=== PATIENT | female | born 1985 | race Caucasian/White ===

== ENCOUNTER → 2019-06-28 12:54 | Outpatient (BNVA) | payer BC, SELFPAY | PROVIDERS: Family Provider Registered Nurse; PCP Registered Nurse; Referring Provider Dermatology; Visit Provider Otolaryngology | DX: H92.02 Otalgia, left ear (principal); H93.92 Unspecified disorder of left ear; H60.92 Unspecified otitis externa, left ear; H69.82 Other specified disorders of Eustachian tube, left ear; J34.2 Deviated nasal septum; J34.3 Hypertrophy of nasal turbinates; J32.9 Chronic sinusitis, unspecified | CPT/HCPCS: 99214 ==

== ENCOUNTER 2019-06-28 14:13 | Outpatient (CLI) | payer BC, SELFPAY ==
--- NOTE | 2019-06-28 14:18 | CT_ITS ---
WS: [id number] CT SINUSES TECHNIQUE: Noncontrast CT of the paranasal sinuses with coronal and sagittal reformatted images. CLINICAL INFORMATION: Ear problem COMPARISON: None. DLP: 462.[address] scans at [facility] use at least one of these dose optimization techniques: automat ed exposure control; mA and/or kV adjustment per patient size (includes targeted exams where dose is matched to clinical indication); or iterative reconstruction. FINDINGS: Minimal right to left nasal septal deviation measuring 1-2 mm. Mucosal thickening left maxillary sinu s measuring 7 mm. Mucosal thickening right maxillary sinus measuring 3 mm. Partial opacification of t he ostiomeatal units bilaterally with mucosal thickening. Hypoplastic frontal sinuses. Left frontal s inus is well aerated.. Small amount of fluid along the left frontoethmoidal recess. Trace mucosal thickening in the ethmoid air cells. Sphenoid sinuses are well aerated. Slight mucosal thickening along the sphenoid sinus ostia. Partially visualized mastoid air cells are well aerated. CT/CT sinus wo con* [id number] IMPRESSION: 1. Minimal nasal septal deviation measuring 1 to 2 mm 2. 7 mm mucosal thickening left maxillary sinus and 3 mm on the right. 3. Narrowing of the ostiomeatal units bilaterally with mild mucosal thickening . 4. Frontal sinuses and sphenoid sinuses are well aerated. Trace mucosal thicke talita in the ethmoid air cells. 5. Partially visualized mastoid air cells appear well aerated.
== END 2019-06-28 14:14 | disposition home or self-care (01) ==
LOC: CT 14:16
PROVIDERS: Family Provider Registered Nurse; PCP Registered Nurse; Visit Provider Otolaryngology
DX: H93.90 Unspecified disorder of ear, unspecified ear (principal)
CPT/HCPCS: 70486

== ENCOUNTER → 2019-07-03 15:20 | Outpatient (BNVA) | payer BC, SELFPAY | PROVIDERS: Family Provider Registered Nurse; PCP Registered Nurse; Visit Provider Otolaryngology | DX: H93.92 Unspecified disorder of left ear (principal); H60.92 Unspecified otitis externa, left ear; H92.02 Otalgia, left ear; H69.82 Other specified disorders of Eustachian tube, left ear; J34.2 Deviated nasal septum; J34.3 Hypertrophy of nasal turbinates; J32.9 Chronic sinusitis, unspecified | CPT/HCPCS: 96372; 99214; J3301 ==

== ENCOUNTER → 2019-07-25 16:06 | Outpatient (BNVA) | payer BC, SELFPAY | PROVIDERS: Family Provider Registered Nurse; PCP Registered Nurse; Visit Provider Otolaryngology | DX: H92.02 Otalgia, left ear (principal); H69.82 Other specified disorders of Eustachian tube, left ear; J32.9 Chronic sinusitis, unspecified; J34.2 Deviated nasal septum; J34.3 Hypertrophy of nasal turbinates | CPT/HCPCS: 96372; 99214; J3301 ==

== ENCOUNTER 2020-03-21 17:24 | Outpatient (CLI) | payer BC, SELFPAY ==
--- NOTE | 2020-03-21 17:29 | XR_ITS ---
WS: [id number] LEFT KNEE: 3 VIEW(S) TECHNIQUE: AP, oblique(s) and lateral. HISTORY: acute left knee pain COMPARISON: None available. No fracture or dislocation. No joint space narrowing or osteophytes. No joint effusion. No soft tissue abnormality. XR/XR knee LT 3V* [id number] IMPRESSION: Normal LEFT knee.
== END 2020-03-21 17:25 | disposition home or self-care (01) ==
LOC: RAD 17:26
PROVIDERS: Family Provider Registered Nurse; PCP Registered Nurse; Visit Provider Registered Nurse
DX: M25.562 Pain in left knee (principal)
CPT/HCPCS: 73562

== ENCOUNTER → 2020-12-19 11:22 | Outpatient (BNVA) | payer BC, SELFPAY | PROVIDERS: Family Provider Registered Nurse; PCP Registered Nurse; Visit Provider Registered Nurse | DX: Z11.52 Encounter for screening for COVID-19 (principal); J32.9 Chronic sinusitis, unspecified | CPT/HCPCS: 87635 ==

== ENCOUNTER → 2021-05-27 16:47 | Outpatient (BNVA) | payer BC, SELFPAY | PROVIDERS: Family Provider Registered Nurse; Visit Provider Family Medicine | DX: R05.3 Chronic cough (principal); F41.1 Generalized anxiety disorder; Z76.89 Persons encountering health services in other specified circumstances; R63.5 Abnormal weight gain; R53.83 Other fatigue | CPT/HCPCS: 84443 ==

== ENCOUNTER 2021-07-31 11:14 | Outpatient (CLI) | payer BC, SELFPAY ==
--- NOTE | 2021-07-31 11:21 | XR_ITS ---
WS: [id number] CHEST 2 VIEWS HISTORY: Shortness of breath COMPARISON: 07/28/2017 Lungs: Clear with no abnormality. No pleural effusion or pneumothorax. Cardiac size: Normal. Mediastinum/Aorta: Normal mediastinum. Bones: Normal. XR/XR chest 2V* [id number] IMPRESSION: Normal chest.
== END 2021-07-31 11:15 | disposition home or self-care (01) ==
PROVIDERS: PCP Family Medicine; Visit Provider Internal Medicine Critical Care Medicine
DX: R06.02 Shortness of breath (principal); J45.909 Unspecified asthma, uncomplicated
CPT/HCPCS: 71046; 82785; 85025; 86003

== ENCOUNTER 2021-09-02 13:27 | Outpatient (CLI) | payer BC, SELFPAY ==
--- NOTE | 2021-09-02 14:25 | PFTS_ITS ---
Date of Study:09/02/21 Date of Dictation: MECHANICS: Forced vital capacity (FVC) is normal. Forced expiratory volume in one second (FEV1) is reduced. FEV1/FVC is reduced. FLOW VOLUME LOOP: Reduced flow at all lung volumes with scooping. Concern for variable inspiratory flow obstruction. LUNG VOLUMES: Total lung capacity (TLC) is normal. Residual volume (RV) is increased. DIFFUSING CAPACITY FOR CARBON MONOXIDE: Normal. INTERPRETATION: The prebronchodilator spirometry is consistent with moderate airflow obstruction. The postbronchodilator spirometry is also consistent with moderate airflow obstruction. There is a significant postbronchodilator response. The flow volume loop could be suggestive of variable expiratory flow obstruction. Lung volumes are consistent with air trapping. Gas exchange (DLCO) is normal. MTDD
== END 2021-09-02 13:28 | disposition home or self-care (01) ==
PROVIDERS: PCP Family Medicine; Visit Provider Internal Medicine Critical Care Medicine
DX: J45.909 Unspecified asthma, uncomplicated (principal)
CPT/HCPCS: 94060; 94726; 94729

== ENCOUNTER → 2021-11-09 18:31 | Outpatient (BNVA) | payer BC, SELFPAY | PROVIDERS: PCP Family Medicine; Visit Provider Family Medicine | DX: R10.9 Unspecified abdominal pain (principal) | CPT/HCPCS: 81000 ==

== ENCOUNTER 2021-11-13 16:43 | Emergency (ER) | payer BC, SELFPAY ==
[2021-11-13 16:51] VITALS: BP 117/79; PULSE 65; RESP 16; TEMP 36.6; O2SAT 97
--- NOTE | 2021-11-13 18:05 | USR_ITS ---
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 Tonight is complaining of right pelvic pain radiating to the back today. ; Additional info: Rlq abd pain TECHNIQUE: Imaging protocol: Real-time transvaginal pelvic ultrasound with image documentation. Transvaginal imaging was used for better evaluation of the endometrium, adnexa, and/or cervix. COMPARISON: No relevant prior studies available. FINDINGS: Uterus: Uterus measures 6.8 x 3.5 x 4.5 cm. Intramural fibroid noted in the anterior body/fundus which measures 2.2 x 1.2 x 2.1 cm. A 2nd intramural fibroid along the posterior fundus measures 1.5 x 1.2 cm. Endometrial stripe measures 4 mm in thickness. Right ovary/adnexa: Right ovary measures 2.5 x 2.0 x 3.2 cm. 1.6 cm simple appearing right ovarian cyst noted. Normal ovarian blood flow. Left ovary/adnexa: Left ovary measures 3.3 x 2.3 x 2.9 cm. A couple simple appearing ovarian cysts noted measuring up to 1.5 cm. Normal ovarian blood flow. Intraperitoneal space: No free fluid. US/US transvaginal [id number] IMPRESSION: 1. No acute findings. 2. A couple small uterine fibroids noted measuring up to 2.2 cm in size. 3. Small simple appearing ovarian cysts bilaterally, likely dominant follicles. This measures up to 1.6 cm on the right and 1.5 cm on the left.
[2021-11-13 18:06] LABS: Add Urine Microscopic? NO; Basophils # 0.1 10^3/uL (0.0-0.1); Basophils % 0.8 %; Charge for UA Resulting for Rev; Eosinophils # 0.1 10^3/uL (0.0-0.8); Eosinophils % 1.2 %; Hemoglobin 13.9 g/dL (11.5-15.3); Lymphocytes # 2.4 10^3/uL (0.8-4.8); Lymphocytes % 36.9 %; Mean Corpuscular HGB Conc 33.9 g/dL (30.0-36.0); Mean Corpuscular Hemoglobin 29.4 pg (28.0-34.0); Mean Corpuscular Volume 86.7 fl (81-99); Mean Platelet Volume 10.9 fL (7.4-10.4); Monocytes # 0.6 10^3/uL (0.2-0.9); Monocytes % 8.6 %; Neutrophils # 3.48 10^3/uL (1.8-7.7); Neutrophils % 52.5 %; Nucleated Red Blood Cells % 0 %; Platelet Count 248 10^3/cmm (130-400); Red Blood Count 4.73 10^6/uL (4.1-5.3); Red Cell Distribution Width 12.5 % (12.1-15.1); White Blood Count 6.6 10^3/uL (4.0-10.0)
[2021-11-13 18:20] LABS: Blood Urine Neg (Negative); Glucose Urine UA Norm (Normal); Ketones Urine Negative (Negative); Nitrate Urine Negative (Negative); Protein Urine Neg (Negative); Specific Gravity, Urine 1.005 (1.005-1.030); Urine Appearance Clear (CLEAR); Urine Color Yellow (Yellow); pH Urine 7 (5-7)
[2021-11-13 18:21] LABS: Bilirubin Urine Neg (Negative); Leukocyte Esterase Urine Negative (Negative); Urobilinogen Urine Norm (Negative)
--- NOTE | 2021-11-13 18:44 | ED_ITS ---
HPI - General Adult General: Chief complaint: Abdominal Pain Stated complaint: abd and back pain Time Seen by Provider: 11/13/21 17:46 History of Present Illness: Patient is a 36-year-old female history of 2 prior presenting to the emergency room with complaints with 3 weeks of right lower quadrant right-sided flank pain now worsening. Patient tells me that she is currently on her period. Patient tells me that there is blood in her urine from her routine blood work test. Patient tells me that she has intermittent colicky pain in the right lower quadrant. With associated nausea. Patient denies any fever chills, decreased p.o. intake with diarrhea melena/hematoche dianne. Patient denies any urinary complaints or new vaginal discharge. Patient has 2 prior history of for many years ago. No other focal complaints at this time including chest pain, shortness breath, palpitation, cough, runny nose, fever or chills. Onset:3 weeks ago Duration:3 weeks Location:home Severity:moderate Associated symptoms: Reports nausea; Deny chest pain, dyspnea, rash, palpitations or vomiting Review of Systems Const: Denies: fever(s) or chills Eyes: Denies: change in vision ENMT: Denies: mouth pain Card: Denies: chest pain or palpitations Resp: Denies: dyspnea or non-productive cough GI: Reports: abdominal pain and nausea; Denies: vomiting or diarrhea : Denies: dysuria Musc: Denies: extremity pain Skin/Breast: Denies: rash or new lesions Neuro: Denies: weakness in extremities Psych: Reports: other (Normal mood) Paul/Lymph: Denies: easy bruising PFS ED PFSH: Medical History Asthma Chronic sinusitis Deviated septum Dysfunction of left eustachian tube Nasal turbinate hypertrophy Otalgia of left ear Otitis externa of left ear Surgical History History of nasal surgery Hx of section Family History Mother Hypertension Grandmother Hypertension Father Cancer Lung Social History Smoking and tobacco status: never smoked Alcohol intake: current Alcohol intake frequency: holidays/special occasions only History of recent travel: No Female Reproductive History: Date of last menstrual period: 11/08/21 Physical Exam Const: COMMON NORMALS: alert HENMT: COMMON NORMALS: atraumatic HEAD & SCALP: atraumatic MOUTH: moist mucous membranes not abnormal Eye: COMMON NORMALS: EOMs intact bilaterally and conjunctivae normal CONJUNCTIVA: Yes conjunctivae normal Neck/C-Spine: COMMON NORMALS: full ROM and supple Resp: COMMON NORMALS: normal respiratory effort and clear to auscultation bilaterally AUSCULTATION: clear to auscultation bilaterally Cardio: COMMON NORMALS: regular rate RATE: regular rate GI: COMMON NORMALS: Soft to palpation PALPATION: Yes Soft to palpation O THER: +mild RLQ focal TTP. NO guarding rebound, guarding, rigidity. No CVA tenderness to percussion. Neg Chapa/Neg McBurney's point tenderness, no suprabupic tenderness to palpation. Extremity: COMMON NORMALS: full ROM Neuro: SENSORIUM/ORIENTATION: Yes alert MOTOR EXAM: No Abnormal motor strength present and Other motor observations present (no focal motor deficits) Psych: COMMON NORMALS: speech normal SPEECH: Yes normal speech MOOD & AFFECT: Yes euthymic mood Course Vital Signs: Vital signs: Vital Signs Temperature 97.8 F 11/13/21 16:51 Pulse Rate 61 11/13/21 20:52 Respiratory Rate 16 11/13/21 20:52 Blood Pressure 105/66 11/13/21 20:52 Pulse Oximetry 99 11/13/21 20:52 MDM - General Adult Medical Decision Making 36-year-old female with a history of 2 prior presenting to emergency room with complaints of right-sided flank and right lower quadrant dental pain x3 weeks now worsening. On exam, patient mild tenderness palpation right lower quadrant. Patient is hemodynamically stable. No guarding or rebound tenderness. White count within normal. Rest of lab within normal limit. Transvaginal ultrasound did not show any focal findings of torsion or other pathology. Patient denies any complaints at this time. exam is deferred at this time. CT of pelvis negative for any acute finding. Rx tylenol PRN abd pain, maalox/pepcid PRN dyspepsia, and zofran PRN n ausea/vomiting Disposition: Discharge. Patient counseled regarding diagnostic impression, treatment plan. Patient given ED strict return precautions to return for continuation, worsening, or development of new symptoms. Instructed to f/u w/ PCP regarding symptoms today. Patient verbalized understanding. Lab Data : 11/13/21 17:58 11/13/21 17:58 Radiology Impressions Transvaginal US 11/13/21 18:05 IMPRESSION: 1. No acute findings. 2. A couple small uterine fibroids noted measuring up to 2.2 cm in size. 3. Small simple appearing ovarian cysts bilaterally, likely dominant follicles. This measures up to 1.6 cm on the right and 1.5 cm on the left. Abdomen/Pelvis CT 11/13/21 18:48 IMPRESSION: No acute findings. Laboratory Results WBC 6.6 10^3/uL (4.0-10.0) 11/13/21 17:58 RBC 4.73 10^6/uL (4.1-5.3) 11/13/21 17:58 Hgb 13.9 g/dL (11.5-15.3) 11/13/21 17:58 Hct 41.0 % (37.0-47.0) 11/13/21 17:58 MCV 86.7 fl (81-99) 11/13/21 17:58 MCH 29.4 pg (28.0-34.0) 11/13/21 17:58 MCHC 33.9 g/dL (30.0-36.0) 11/13/21 17:58 RDW 12.5 % (12.1-15.1) 11/13/21 17:58 Plt Count 248 10^3/cmm (130-400) 11/13/21 17:58 MPV 10.9 fL (7.4-10.4) H 11/13/21 17:58 Neut % (Auto) 52.5 % 11/13/21 17:58 Lymph % (Auto) 36.9 % 11/13/21 17:58 [place] % (Auto) 8.6 % 11/13/21 17:58 Eos % (Auto) 1.2 % 11/13/21 17:58 Baso % (Auto) 0.8 % 11/13/21 17:58 Neut # (Auto) 3.48 10^3/uL (1.8-7.7) 11/13/21 17:58 Lymph # (Auto) 2.4 10^3/uL (0.8-4.8) 11/13/21 17:58 [place] # (Auto) 0.6 10^3/uL (0.2-0.9) 11/13/21 17:58 Eos # (Auto) 0.1 10^3/uL (0.0-0.8) 11/13/21 17:58 Baso # (Auto) 0.1 10^3/uL (0.0-0.1) 11/13/21 17:58 Nucleated RBC % (auto) 0 % 11/13/21 17:58 Nucleated RBCs # 0.0 /100WBC 11/13/21 17:58 Sodium 138 mmol/L (136-145) 11/13/21 17:58 Potassium 4.0 mmol/L (3.5-5.1) 11/13/21 17:58 Chloride 101 mmol/L (98-107) 11/13/21 17:58 Carbon Dioxide 27 mmol/L (22-29) 11/13/21 17:58 Anion Gap 14.0 (5-19) 11/13/21 17:58 BUN 14 mg/dL (6-20) 11/13/21 17:58 Creatinine 0.8 mg/dL (0.5-0.9) 11/13/21 17:58 GFR Calculation 82.1 mL/min (90-130) L 11/13/21 17:58 Glucose 93 mg/dL (65-115) 11/13/21 17:58 Calculated Osmolality 286 mOsm/kg (285-295) 11/13/21 17:58 Calcium 9.3 mg/dL (8.5-10.5) 11/13/21 17:58 Total Bilirubin 0.2 mg/dL (0.15-1.2) 11/13/21 17:58 AST 17 U/L (0-32) 11/13/21 17:58 ALT 12 U/L (0-33) 11/13/21 17:58 Alkaline Phosphatase 54 IU/L (35-105) 11/13/21 17:58 Total Protein 7.5 g/dL (6.6-8.7) 11/13/21 17:58 Albumin 4.9 g/dL (3.5-5.2) 11/13/21 17:58 Globulin 2.6 g/dL (1.3-4.6) 11/13/21 17:58 Lipase 32 U/L (13-60) 11/13/21 17:58 HCG, Qual Negative (Negative) 11/13/21 17:58 Urine Color Yellow (Yellow) 11/13/21 17:58 Urine Appearance Clear (CLEAR) 11/13/21 17:58 Urine pH 7 (5-7) 11/13/21 17:58 Ur Specific [place] 1.005 (1.005-1.030) 11/13/21 17:58 Urine Protein Neg (Negative) 11/13/21 17:58 Urine Glucose (UA) Norm (Normal) 11/13/21 17:58 Urine Ketones Negative (Negative) 11/13/21 17:58 Urine Blood Neg (Negative) 11/13/21 17:58 Urine Nitrate Negative (Negative) 11/13/21 17:58 Urine Bilirubin Neg (Negative) 11/13/21 17:58 Urine Urobilinogen Norm mg/dL (Negative) 11/13/21 17:58 Ur Leukocyte Esterase Negative (Negative) 11/13/21 17:58 Imaging Data Other Imaging: Radiologist's impression: [id number] [address] [address] Scan Report Signed Patient: Lorie Webb Unit #: [id number] : 1985 Age/Sex: 36 / F ADM Date: 11/13/21 Loc: ER Room/Bed: Attending Dr: Ordering Provider/Ordering MD: Domingo Morales MD Date of Service: 11/13/21 Procedure(s): CT abdomen pelvis con [id number] Accession Number(s): [id number] Report Number: [id number] PROCEDURE INFORMATION: Exam: CT Abdomen And Pelvis Without Contrast Exam date and time: 11/13/2021 7:55 PM Age: 36 years old Clinical indication: Abdominal pain; Right; Prior surgery; Surgery type: Csection; Patient HX: C/O RT flank/rlq pain. ; Additional info: Abd pain TECHNIQUE: Imaging protocol: Computed tomography of the abdomen and pelvis without contrast. Radiation optimization: All CT scans at this facility use at least one of these dose optimization techniques: automated exposure control; mA and/or kV adjustment per patient size (includes targeted exams where dose is matched to clinical indication); or iterative reconstruction. COMPARISON: US transvaginal [id number] 11/13/2021 6:38 PM RADIATION DOSE METRICS: Total DLP (mGy-cm): 1461.48 FINDINGS: Liver: Normal. No mass. Gallbladder and bile ducts: Normal. No calcified stones. No ductal dilation. Pancreas: Normal. No ductal dilation. Spleen: Normal. No splenomegaly. Adrenal glands: Normal. No mass. Kidneys and ureters: Normal. No hydronephrosis. Stomach and bowel: Unremarkable. No obstruction. No mucosal thickening. Appendix: No evidence of appendicitis. Intraperitoneal space: Unremarkable. No free air. No significant fluid collection. Vasculature: Unremarkable. No abdominal aortic aneurysm. Lymph nodes: Unremarkable. No enlarged lymph nodes. Urinary bladder: Unremarkable as visualized. Reproductive: Small ovarian cysts noted, described in further detail on corresponding ultrasound. Bones/joints: No acute fracture. Soft tissues: Unremarkable. CT/CT abdomen pelvis con [id number] IMPRESSION: No acute findings. ? Dictated By: Michel Kim DO Signed By: Michel Kim DO Signed Date/Time: 11/13/212031 DD/ [address] [address] Ultrasound Report Signed Patient: Lorie Webb Unit #: [id number] : 1985 Age/Sex: 36 / F ADM Date: 11/13/21 Loc: ER Room/Bed: Attending Dr: Ordering Provider/Ordering MD: Domingo Morales MD Date of Service: 11/13/21 Procedure(s): US transvaginal [id number] Accession Number(s): [id number] Report Number: [id number] PROCEDURE INFORMATION: Exam: US Pelvis, Transvaginal Exam date and time: 11/13/2021 6:38 PM Age: 36 years old Clinical indication: Prior surgery; Surgery date: 6+ months; Surgery type: Csect x 2, last one 11 years ago; Patient HX: Chronic pelvic pain due to dx ovarian cysts, 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 Anupam is complaining of right pelvic pain radiating to the back today. ; Additional info: Rlq abd pain TECHNIQUE: Imaging protocol: Real-time transvaginal pelvic ultrasound with image documentation. Transvaginal imaging was used for better evaluation of the endometrium, adnexa, and/or cervix. COMPARISON: No relevant prior studies available. FINDINGS: Uterus: Uterus measures 6.8 x 3.5 x 4.5 cm. Intramural fibroid noted in the anterior body/fundus which measures 2.2 x 1.2 x 2.1 cm. A 2nd intramural fibroid along the posterior fundus measures 1.5 x 1.2 cm. Endometrial stripe measures 4 mm in thickness. Right ovary/adnexa: Right ovary measures 2.5 x 2.0 x 3.2 cm. 1.6 cm simple appearing right ovarian cyst noted. Normal ovarian blood flow. Left ovary/adnexa: Left ovary measures 3.3 x 2.3 x 2.9 cm. A couple simple appearing ovarian cysts noted measuring up to 1.5 cm. Normal ovarian blood flow. Intraperitoneal space: No free fluid. US/US transvaginal [id number] IMPRESSION: 1. No acute findings. 2. A couple small uterine fibroids noted measuring up to 2.2 cm in size. 3. Small simple appearing ovarian cysts bilaterally, likely dominant follicles. This measures up to 1.6 cm on the right and 1.5 cm on the left. ? Dictated By: Michel Kim DO Signed By: Michel Kim DO Signed Date/Time: 11/13/212036 DD/ 37 Discharge Plan Discharge Patient Disposition: Home Clinical Impression: Abdominal pain, Nausea Condition: Stable Prescriptions: New acetaminophen 500 mg tablet 500 mg PO Q6H PRN (Reason: pain) 5 Days Qty: 20 0RF Pepcid 20 mg tablet 20 mg PO BID PRN (Reason: abdominal pain) 10 Days Qty: 20 0RF ondansetron 4 mg tablet,disintegrating 4 mg PO TID PRN (Reason: nausea and vomiting) 4 Days Qty: 12 0RF Maalox Advanced 1,000-60 mg tablet,chewable 1 tab PO TID PRN (Reason: abdominal pain) 7 Days Qty: 21 0RF No Action fluticasone propionate [Flonase Allergy Relief] 50 mcg/actuation spray,suspension 1 spray intranasal Q12H 30 Days Qty: 16 3RF Rx Instructions: administer into each nostril albuterol sulfate 90 mcg/actuation HFA aerosol inhaler 2 puff inhalation 6XD PRN (Reason: shortness of breath or wheezing) 30 Days Qty: 8.5 3RF buspirone 5 mg tablet 5 mg PO TID PRN (Reason: anxiety) Qty: 30 2RF hydroxyzine HCl 10 mg tablet 10 mg PO TID PRN (Reason: anxiety) Qty: 30 2RF hydrocodone-acetaminophen 5-325 mg tablet 1 tab PO Q8H PRN (Reason: pain) 5 Days Qty: 14 0RF escitalopram oxalate [Lexapro] 20 mg tablet 20 mg PO DAILY Qty: 90 1RF Trelegy Ellipta 100-62.5-25 mcg blister with device 1 inh inhalation DAILY Qty: 60 3RF montelukast [Singulair] 10 mg tablet 10 mg PO DAILY Qty: 30 2RF Tezspire 210 mg/1.91 mL (110 mg/mL) syringe 210 mg SUBCUT .once monthly Qty: 1.91 3RF Discharge Orders: Discharge ED (Routine); Ordered 11/13/21 Ordered By: Domingo Morales Referrals: James Santamaria DO [Primary Care Provider] - Discharge Diet: Advance as tolerated Discharge Activity: Increase activity as tolerated Patient Instructions: Abdominal Pain (ED) Activity Restrictions/Additional Instructions: Please come back if you have any worsening abdominal pain, fever or chills, nausea or vomiting, diarrhea, blood in the stool, inability hold down liquid or solids, or any new concerning complaints. Coding Level of Care Code ED Flight Attendant/Inflight Supervisor for Micah Fwrita Exam Comprehensive
[2021-11-13 18:45] LABS: Alanine Aminotransferase 12 U/L (0-33); Albumin Level 4.9 g/dL (3.5-5.2); Alkaline Phosphatase 54 IU/L (35-105); Aspartate Amino Transferase 17 U/L (0-32); Blood Urea Nitrogen 14 mg/dL (6-20); Calcium 9.3 mg/dL (8.5-10.5); Carbon Dioxide 27 mmol/L (22-29); Chloride 101 mmol/L (98-107); Globulin 2.6 g/dL (1.3-4.6); Glomerular Filtration Rate 82.1 mL/min (90-130); Glucose 93 mg/dL (65-115); Lipase 32 U/L (13-60); Osmolality Calculated 286 mOsm/kg (285-295); Sodium 138 mmol/L (136-145); Total Bilirubin 0.2 mg/dL (0.15-1.2); Total Protein 7.5 g/dL (6.6-8.7)
--- NOTE | 2021-11-13 18:48 | CTR_ITS ---
PROCEDURE INFORMATION: Exam: CT Abdomen And Pelvis Without Contrast Exam date and time: 11/13/2021 7:55 PM Age: 36 years old Clinical indication: Abdominal pain; Right; Prior surgery; Surgery type: Csection; Patient HX: C/O RT flank/rlq pain. ; Additional info: Abd pain TECHNIQUE: Imaging protocol: Computed tomography of the abdomen and pelvis without contrast. Radiation optimization: All CT scans at this facility use at least one of these dose optimization techniques: automated exposure control; mA and/or kV adjustment per patient size (includes targeted exams where dose is matched to clinical indication); or iterative reconstruction. COMPARISON: US transvaginal [id number] 11/13/2021 6:38 PM RADIATION DOSE METRICS: Total DLP (mGy-cm): 1461.48 FINDINGS: Liver: Normal. No mass. Gallbladder and bile ducts: Normal. No calcified stones. No ductal dilation. Pancreas: Normal. No ductal dilation. Spleen: Normal. No splenomegaly. Adrenal glands: Normal. No mass. Kidneys and ureters: Normal. No hydronephrosis. Stomach and bowel: Unremarkable. No obstruction. No mucosal thickening. Appendix: No evidence of appendicitis. Intraperitoneal space: Unremarkable. No free air. No significant fluid collection. Vasculature: Unremarkable. No abdominal aortic aneurysm. Lymph nodes: Unremarkable. No enlarged lymph nodes. Urinary bladder: Unremarkable as visualized. Reproductive: Small ovarian cysts noted, described in further detail on corresponding ultrasound. Bones/joints: No acute fracture. Soft tissues: Unremarkable. CT/CT abdomen pelvis [facility] [id number] IMPRESSION: No acute findings.
[2021-11-13 18:51] LABS: HCG, Serum Qual Negative (Negative)
[2021-11-13] MEDS: acetaminophen 500 mg Tablet PO (20:07)
[2021-11-13 20:52] VITALS: BP 105/66; PULSE 61; RESP 16; O2SAT 99
== END 2021-11-13 20:57 | disposition home or self-care (01) ==
PROVIDERS: Nurse Practitioner Family; Emergency Provider Emergency Medicine; PCP Family Medicine
DX: R10.9 Unspecified abdominal pain (principal); R11.0 Nausea
CPT/HCPCS: 74176; 76830; 80053; 81003; 83690; 84703; 85025; 99283

== ENCOUNTER 2021-11-20 11:38 | Outpatient (CLI) | payer BC, SELFPAY ==
--- NOTE | 2021-11-20 12:23 | XR_ITS ---
WS: [id number] XR elbow RT min 3V* [id number] REASON FOR EXAM: M25.521 - Pain in right elbow FINDINGS: No fracture identified. Spaces of the elbow joint are intact and well preserved. No soft tissue abnormality. No joint effusion identified. XR/XR elbow RT min 3V* [id number] IMPRESSION: No acute abnormality.
--- NOTE | 2021-11-20 16:30 | US_ITS ---
WS: [id number] RIGHT UPPER QUADRANT ULTRASOUND HISTORY: RUQ pain, worsening. COMPARISON: None available. Liver: 12.8 cm in length. Normal size liver. No bile duct dilatation or mass. Portal Vein: Normal hepatopetal flow with monophasic waveform. Gallbladder: Normally distended gallbladder with no stones or wall thickening. CBD: 0.5 cm Pancreas: Normal size and echogenicity. Right kidney: 9.5 cm in length. Normal size and echogenicity. No hydronephrosis or mass. Aorta and IVC: Unremarkable abdominal aorta and IVC. No ascites. US/US abdomen limited [id number] IMPRESSION: Normal RIGHT upper quadrant ultrasound.
== END 2021-11-20 11:39 | disposition home or self-care (01) ==
PROVIDERS: PCP Family Medicine; Referring Provider Registered Nurse; Visit Provider Family Medicine
DX: R10.9 Unspecified abdominal pain (principal); R11.0 Nausea; M25.421 Effusion, right elbow; M25.521 Pain in right elbow
CPT/HCPCS: 73080; 76705

== ENCOUNTER → 2021-11-27 14:14 | Day surgery (SDC) | payer BC, SELFPAY ==
[2021-11-27] MEDS: NON-FORMULARY MEDICATION 1 EACH SUBCUT (14:27)
[2021-11-27 14:36] VITALS: BP 126/68; PULSE 66; RESP 18; TEMP 36.3; O2SAT 98
== END ==
PROVIDERS: PCP Family Medicine; Visit Provider Internal Medicine Critical Care Medicine
DX: J45.50 Severe persistent asthma, uncomplicated (principal)
CPT/HCPCS: 96372; J2704

== ENCOUNTER 2021-12-17 07:52 | Outpatient (CLI) | payer BC, SELFPAY ==
--- NOTE | 2021-12-17 08:00 | NM_ITS ---
WS: [id number] NUCLEAR MEDICINE HIDA SCAN WITH GALLBLADDER EJECTION FRACTION HISTORY: abdominal pain COMPARISON: Gallbladder ultrasound 11/20/2021 and prior HIDA scan 07/01/2017. TECHNIQUE: The patient was intravenously injected with 7.5 mCi of TC99m Mebrofenin. Immediate imaging over the right upper quadrant was followed by 5 minute image and additional images for a total of 60 minutes. Normal uptake of radiotracer throughout the liver. Activity identified in the gallbladder at 15 minutes and only mildly distended at 60 minutes. Activity in the proximal small bowel was seen after fatty meal. Good washout of the radiotracer from the liver at 60 minutes. The patient then drank 8 ounces of Ensure Plus. Ejection fraction at 60 minutes was 95%. Normal GB ej ection fraction is 35-75%. Post fatty meal symptoms: None. NM/NM hepatobiliary w phar* [id number] IMPRESSION: 1. No cystic or common bile duct obstruction. 2. Small caliber gallbladder did not distend very well at 60 minutes. There wa s a normal ejection fraction. There may be a component of mild chronic cholecys titis. The recent gallbladder ultrasound was normal and showed a normally diste nded gallbladder.
== END 2021-12-17 07:53 | disposition home or self-care (01) ==
LOC: RAD 07:54
PROVIDERS: PCP Family Medicine; Visit Provider Surgery
DX: R10.9 Unspecified abdominal pain (principal)
CPT/HCPCS: 78227; A9537

== ENCOUNTER 2021-12-18 08:54 | Day surgery (SDC) | payer BC, SELFPAY ==
[2021-12-16 09:05] VITALS: BMI 29.2
[2021-12-18 09:14] VITALS: BP 118/66; PULSE 71; RESP 18; TEMP 36.1; O2SAT 96
[2021-12-18 09:21] LABS: OR HCG Qualitative Urine Negative (Negative)
[2021-12-18] MEDS: sodium chloride 0.9% 1,000 ML 30 ML IV (09:22)
--- NOTE | 2021-12-18 09:53 | W.PM.OPSUD ---
Surgery/Procedure H&P Update DATE OF PROCEDURE: December 18, 2021 DATE H&P PERFORMED: 12/01/21 CHANGES TO PREVIOUS DOCUMENTATION: none PLANNED PROCEDURE: Operation Date: 12/18/21 10:30 Proposed Procedures p EGD(Not Applicable) - Salas Villarreal DO
--- NOTE | 2021-12-18 10:17 | ANES.PREANE2 ---
Pre-Anesthetic Assessment Height/Weight: Height 1.57 m Weight 72.575 kg Temp Pulse Resp BP Pulse Ox O2 Del Method 97.0 F L 71 18 118/66 96 12/18/21 09:14 12/18/21 09:14 12/18/21 09:14 12/18/21 09:14 12/18/21 09:14 12/18/21 09:14 Preop Diagnosis: Dysphagia Operation Date: 12/18/21 10:30 Proposed Procedures p EGD(Not Applicable) - Salas Villarreal DO Familial anesthetic complications: none Was Beta Leeanna taken within 24 hours: N/A Was Clonidine taken within 24 hours: N/A Last intake: Intake Last Liquid Date 12/17/21 Last Liquid Time 22:00 Last Solid Date 12/17/21 Last Solid Time 22:00 Social No alcohol and No tobacco Airway Submandibular: within normal limits Cervical ROM: within normal limits Mallampati: Class II Dentition: full Pulmonary None reported CV/HEM None reported None reported Hepatic None reported Medications/Allergies Home Medications Medication Instructions Recorded Confirmed Last Taken Type escitalopram oxalate 20 mg tablet 20 mg PO DAILY #90 tabs 06/24/21 12/19/21 12/17/21 Rx (Lexapro) buspirone 5 mg tablet 5 mg PO TID PRN anxiety #30 tabs 07/08/21 12/19/21 11/27/21 Rx hydroxyzine HCl 10 mg tablet 10 mg PO TID PRN anxiety #30 tabs 07/08/21 12/19/21 11/27/21 Rx albuterol sulfate 90 mcg/actuation 2 puff inhalation 6XD PRN 07/31/21 12/19/21 12/17/21 Rx aerosol inhaler shortness of breath or wheezing 30 days #8.5 grams fluticasone propionate 50 1 spray intranasal Q12H 30 days 07/31/21 12/19/21 11/27/21 Rx mcg/actuation nasal #16 grams spray,suspension (Flonase Allergy Relief) montelukast 10 mg tablet 10 mg PO DAILY #30 tabs 10/06/21 12/19/21 12/17/21 Rx (Singulair) tezepelumab-ekko 210 mg/1.91 mL 210 mg (1.91 mL) SUBCUT .once 06/12/19/21 11/27/21 Rx (110 mg/mL) subcutaneous syringe monthly #1.91 mL (Tezspire) meclizine 12.5 mg tablet 12.5 mg PO TID PRN dizziness #15 12/02/21 12/19/21 12/13/21 Rx tabs Allergies Allergy/AdvReac Type Severity Reaction Status Date / Time lactose Allergy Unknown Verified 12/19/21 11:44 Current Medications Generic Name Dose Route Start Last Admin Trade Name Freq PRN Reason Stop Dose Admin Sodium Chloride 1,000 mls @ 30 mls/hr 12/18/21 09:00 12/18/21 09:22 Sodium Chloride 0.9% IV 12/19/21 08:59 30 mls/hr .Q24H ZION Administration PFSH Anesthesia Medical History Asthma Chronic sinusitis Deviated septum Dysfunction of left eustachian tube Nasal turbinate hypertrophy Otalgia of left ear Otitis externa of left ear Surgical History History of nasal surgery Hx of section Family History Mother Hypertension Grandmother Hypertension Father Cancer Lung Social History Smoking and tobacco status: never smoked Alcohol intake: current Alcohol intake frequency: holidays/special occasions only History of recent travel: No Female Reproductive History Date of last menstrual period: 11/08/21 Data Anesthesia Cardiac Studies: No Data to Display
[2021-12-18 10:33] VITALS: BP 105/74; PULSE 72; RESP 16; TEMP 36.2; O2SAT 95
[2021-12-18 10:42] VITALS: BP 112/78; PULSE 77; RESP 18; O2SAT 96
--- NOTE | 2021-12-18 12:48 | ANE.PACU2 ---
Inpatient post-anesthesia follow up: Airway intact: Yes Vital signs: Temperature 97.2 F Pulse Rate 77 Respiratory Rate 18 Blood Pressure 112/78 Pulse Oximetry 96 Oxygen Delivery Me thod Room Air Oxygen Flow Rate 6 Fraction of Inspir ed Oxygen Hydration adequate: Yes Nausea and vomiting: No Pain level: 1 Mental status: Baseline
== END 2021-12-18 10:52 | disposition home or self-care (01) ==
PROVIDERS: Anesthesiology; PCP Family Medicine; Visit Provider Surgery
PROC: 0DJ08ZZ Inspection of Upper Intestinal Tract, Via Natural or Artificial Opening Endoscopic (ICD-10-PCS; CPT 43235; principal; 2021-12-18 10:30)
DX: R10.13 Epigastric pain (principal)
CPT/HCPCS: 43235; 81025; 84703; J7030

== ENCOUNTER → 2021-12-25 11:04 | Day surgery (SDC) | payer BC, SELFPAY ==
[2021-12-25 11:26] VITALS: BP 119/63; PULSE 77; RESP 18; TEMP 36.2; O2SAT 97
== END ==
PROVIDERS: PCP Family Medicine; Visit Provider Internal Medicine Critical Care Medicine
DX: J45.50 Severe persistent asthma, uncomplicated (principal)
CPT/HCPCS: 96372

== ENCOUNTER 2022-01-08 07:01 | Day surgery (SDC) | payer BC, SELFPAY ==
[2022-01-08] VITALS (14 sets, daily range): BP systolic 97–131; BP diastolic 60–85; PULSE 52–77; RESP 16–20; TEMP 36.2–36.6; O2SAT 97–100
[2022-01-08 07:20] LABS: OR HCG Qualitative Urine Negative (Negative)
--- NOTE | 2022-01-08 07:21 | P.ANESASSM_ITS ---
Pre-Anesthetic Assessment Height/Weight: Height 1.55 m Weight 72.575 kg Temp Pulse Resp BP Pulse Ox O2 Del Method 97.1 F L 62 17 107/74 97 01/08/22 07:10 01/08/22 07:10 01/08/22 07:10 01/08/22 07:10 01/08/22 07:10 01/08/22 07:10 Preop Diagnosis: Dysphagia Operation Date: 01/08/22 07:50 Proposed Procedures p Laparoscopic Cholecystectomy 96255,K81.1(Not Applicable) - Salas Villarreal DO Familial anesthetic complications: None Was Beta Leeanna taken within 24 hours: N/A Was Clonidine taken within 24 hours: N/A Last intake: Intake Last Liquid Date 01/07/22 Last Liquid Time 21:30 Last Solid Date 01/07/22 Last Solid Time 21:30 Social No alcohol and No tobacco Exam alert, oriented x 3, clear to auscultation bilaterally and regular rate & rhythm Airway Mallampati: Class II Dentition: full Pulmonary Asthma CV/HEM None reported None reported Hepatic None reported GI None reported Metabolic None reported Musc/skel None reported Neuropsych None reported Anesthetic Plan ASA status: 2 Anesthesia: General Risk of > 500 ml blood loss (7ml/kg in children): No Medications/Allergies Home Medications Medication Instructions Recorded Confirmed Last Taken Type buspirone 5 mg tablet 5 mg PO TID PRN anxiety #30 tabs 07/08/21 01/07/22 12/25/21 Rx hydroxyzine HCl 10 mg tablet 10 mg PO TID PRN anxiety #30 tabs 07/08/21 01/07/22 12/25/21 Rx albuterol sulfate 90 mcg/actuation 2 puff inhalation 6XD PRN 07/31/21 01/07/22 12/25/21 Rx aerosol inhaler shortness of breath or wheezing 30 days #8.5 grams fluticasone propionate 50 1 spray intranasal Q12H 30 days 07/31/21 01/08/22 12/25/21 Rx mcg/actuation nasal #16 grams spray,suspension (Flonase Allergy Relief) montelukast 10 mg tablet 10 mg PO DAILY #30 tabs 10/06/21 01/08/22 01/06/22 Rx (Singulair) tezepelumab-ekko 210 mg/1.91 mL 210 mg (1.91 mL) SUBCUT .once 11/05/21 01/08/22 12/25/21 Rx (110 mg/mL) subcutaneous syringe monthly #1.91 mL (Tezspire) escitalopram oxalate 20 mg tablet 20 mg PO DAILY #90 tabs 12/29/21 01/08/22 01/06/22 Rx (Lexapro) Allergies Allergy/AdvReac Type Severity Reaction Status Date / Time lactose Allergy Unknown Verified 01/08/22 07:11 [facility] Anesthesia Medical History Asthma Chronic sinusitis Deviated septum Dysfunction of left eustachian tube Nasal turbinate hypertrophy Otalgia of left ear Otitis externa of left ear Surgical History History of nasal surgery Hx of section Family History Mother Hypertension Grandmother Hypertension Father Cancer Lung Social History Smoking and tobacco status: never smoked Alcohol intake: current Alcohol intake frequency: holidays/special occasions only History of recent travel: No Female Reproductive History Date of last menstrual period: 11/08/21 Data Anesthesia Cardiac Studies: No Data to Display
[2022-01-08] MEDS: sodium chloride 0.9% 1,000 ML 30 ML IV (07:26)
--- NOTE | 2022-01-08 08:26 | W.PM.OPSUD ---
Surgery/Procedure H&P Update DATE OF PROCEDURE: January 08, 2022 DATE H&P PERFORMED: 12/19/21 CHANGES TO PREVIOUS DOCUMENTATION: none PREOP DIAGNOSIS: Dysphagia PLANNED PROCEDURE: Operation Date: 01/08/22 07:50 Proposed Procedures p Laparoscopic Cholecystectomy 52089,K81.1(Not Applicable) - Salas Villarreal DO
[2022-01-08] MEDS: ceFAZolin 2,000 MG in sodium chloride 0.9% (plus) 50 ML 100 MG IV (08:36)
--- NOTE | 2022-01-08 09:14 | P.OP_ITS ---
Operative Report Date of procedure: January 08, 2022 Pre-op diagnosis: Preop Diagnosis Cholecystitis Post-op diagnosis: same Procedure done: Laparoscopic cholecystectomy Specimens removed/disposition: Gallbladder Surgeon: Dr. Salas Villarreal DO Estimated blood loss (mL): 10 Complications: None apparent Brief History: This is a very pleasant indicated cholecystitis. Laparoscopic cholecystectomy was indicated. The risks and benefits were explained and documented. Procedure: Patient was wheeled into the operative room and placed on the OR table in a supine position. Abdomen was inspected prepped and draped in usual sterile fashion. Time-out was performed and all present were in agreement. A 15 blade scalp was used to make a stab incision in the left upper quadrant and intra- abdominal insufflation was achieved using a Veress needle. After localizing the tissue incisions were made and a 5 millimeter trocar was placed into the umbilicus as well as 2 in the right upper quadrant. A 12 millimeter trocar was placed in the epigastrium. Gallbladder was grasped and elevated. The triangle of Calot was carefully dissected using blunt dissection and electrocautery until the triangle of Calot clearly identified. The cystic duct was clipped proximally and double clipped distally. The duct was then ligated proximally. The cystic artery was doubly clipped and ligated. The gallbladder was then removed from the liver bed using electrocautery. The gallbladder was removed from the abdomen using an Endo-Catch bag through the epigastric incision. The liver bed was inspected and no bleeding was seen. The abdomen was irrigated and suctioned. All ports removed. Skin was washed and dried. Incisions were closed with 3-0 and 4-O Vicryl in a subcuticular interrupted fashion. Skin glue was applied. Patient tolerated the procedure well.
[2022-01-08] MEDS: fentaNYL 50 mcg/mL INJ 2mL IVP ×2 (09:47→09:57)
[2022-01-08] MEDS: HYDROmorphone 1 mg/mL INJ 1 mL 0.5 MG IVP (10:10)
[2022-01-08] MEDS: ondansetron 2 mg/ML SDV 2 mL 4 MG IVP (11:09)
--- NOTE | 2022-01-08 11:14 | SUR.PHASEII ---
Patient became nauseated, zofran was administered. Nasal cannula removed, patient on room air, tolerating well.
[2022-01-08] MEDS: diphenhydrAMINE 50 mg/mL SDV 1mL 12.5 MG IVP (11:39)
[2022-01-08] MEDS: metoclopramide 5 mg/mL SDV 2 mL IVP (12:02)
[2022-01-08] MEDS: HYDROcodone-acetaminophen 7.5-325 mg Tablet 1 TAB PO (12:26)
--- NOTE | 2022-01-08 12:37 | ANE.PACU2 ---
Inpatient post-anesthesia follow up: Airway intact: Yes Vital signs: Temperature 97.4 F Pulse Rate 53 Respiratory Rate 17 Blood Pressure 97/60 Pulse Oximetry 97 Oxygen Delivery Me thod Nasal Cannula Oxygen Flow Rate 2 Fraction of Inspir ed Oxygen Hydration adequate: Yes Nausea and vomiting: No Pain level: 1 Mental status: Baseline
== END 2022-01-08 12:33 | disposition home or self-care (01) ==
PROVIDERS: Anesthesiology; PCP Family Medicine; Visit Provider Surgery
PROC: 0FT44ZZ Resection of Gallbladder, Percutaneous Endoscopic Approach (ICD-10-PCS; CPT 47562; principal; 2022-01-08 08:30)
DX: K81.1 Chronic cholecystitis (principal); J45.909 Unspecified asthma, uncomplicated
CPT/HCPCS: 47562; 81025; 84703; 88304; J1100; J1170; J1200; J2250; J2405; J2704; J2710; J2765; J3010; J3490; J7030

== ENCOUNTER 2022-01-09 12:13 | Emergency (ER) | payer BC, SELFPAY ==
[2022-01-09] VITALS (10 sets, daily range): BP systolic 93–136; BP diastolic 54–80; PULSE 49–61; RESP 14–19; TEMP 36.9; O2SAT 95–99; BMI 30.2
--- NOTE | 2022-01-09 12:21 | XRR_ITS ---
PROCEDURE INFORMATION: Exam: XR Chest Exam date and time: 01/09/2022 12:36 PM Age: 36 years old Clinical indication: Pain and device placement; Other: S/P lap kacy; Angina pectoris; Prior surgery; Additional info: Cp S/P lap kacy TECHNIQUE: Imaging protocol: Radiologic exam of the chest. Views: 1 view. COMPARISON: CR XR chest 2V* [id number] 07/31/2021 11:20 AM FINDINGS: Lungs: Bilateral hilar to lower lobe atelectasis versus minimal infiltrate. Pleural spaces: Unremarkable. No pleural effusion. No pneumothorax. Heart/Mediastinum: Unremarkable. No cardiomegaly. Bones/joints: Unremarkable. XR/XR chest 1V portable [id number] IMPRESSION: Bilateral hilar to lower lobe atelectasis versus minimal infiltrate.
--- NOTE | 2022-01-09 12:21 | ECG_ITS ---
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 Measurements Intervals Mouthcard Rate: 51 P: OH: QRS: 15 QRSD: 85 T: -29 QT: 439 QTc: 407 Interpretive Statements SINUS BRADYCARDIA NONSPECIFIC ST & T-WAVE ABNORMALITY No previous ECG available for comparison Electronically Signed On 01-09-2022 17:44:47 CDT by Tremaine Koroma M.D. [id number]
--- NOTE | 2022-01-09 12:25 | ED_ITS ---
HPI - Abdominal Pain General: Chief Complaint: Chest Pain Stated Complaint: RESPIRATORY DISTRESS/ ANAPHYLAXIS REACTION Time Seen by Provider: 01/09/22 12:21 Source: patient and family Mode of arrival: ambulatory Limitations: no limitations History of Present Illness: This patient presented to the emergency room via private vehicle. She was riding in the car with her spouse and developed upper abdominal discomfort predominantly in the right and central portions of her upper abdomen. She states it felt like it hurt worse when she tried to take a deep breath. She was nauseated but no vomiting. She denies any other symptoms at this time to include difficulty swallowing, skin rash etc. She has had 24- hour status post a laparoscopic cholecystectomy without any complications and was discharged after noon yesterday on the day of her surgery. She denies any fevers. She is otherwise in good health. Non-smoker. She has been taking some hydrocodone for her postoperative pain as directed. She has no history of cardiopulmonary disease otherwise. No history of thromboembolic disease. She has a tubal ligation but she takes no prescribed hormones. MD elicited complaint: abdominal pain Associated Symptoms: Reports nausea; Denies chills, diarrhea, dysuria, fever(s), syncope and vomiting Related Data: Date of Last Menstrual Period: 11/08/21 Review of Systems Const: Denies: fever(s), chills or body aches Eyes: Denies: change in vision ENMT: Denies: throat pain, odynophagia or nasal congestion Card: Denies: chest pain, palpitations, irregular heart rhythm, syncope or pre-syncope Resp: Denies: dyspnea, productive cough or non-productive cough GI: Reports: abdominal pain and nausea; Denies: vomiting or diarrhea : Denies: flank pain, difficulty voiding, dysuria or urinary frequency Musc: Denies: neck pain, back pain, extremity pain or extremity swelling Skin/Breast: Denies: rash Neuro: Denies: headache(s) Psych: Denies: anxiety or depression Paul/Lymph: Denies: easy bruising or easy bleeding [facility] ED PFSH: Medical History Asthma Chronic sinusitis Deviated septum Dysfunction of left eustachian tube Nasal turbinate hypertrophy Otalgia of left ear Otitis externa of left ear Surgical History History of nasal surgery Hx of section Family History Mother Hypertension Grandmother Hypertension Father Cancer Lung Social History Smoking and tobacco status: never smoked Alcohol intake: current Alcohol intake frequency: holidays/special occasions only History of recent travel: No Female Reproductive History: Date of last menstrual period: 11/08/21 Physical Exam Narrative: EXAM NARRATIVE: Healthy appearing. Slightly anxious. Able to answer questions in a full goal-directed sentences. Const: COMMON NORMALS: no acute distress, average body habitus, patient oriented x3 and healthy appearing GENERAL APPEARANCE: cooperative and anxious HENMT: COMMON NORMALS: normocephalic, moist oral mucous membranes and oropharynx normal HEAD & SCALP: normocephalic FACE & SINUS: normal facial exam Eye: COMMON NORMALS: Equal, round and reactive pupils present, EOMs intact bilaterally, conjunctivae normal and no scleral icterus CONJUNCTIVA: Yes conjunctivae normal PUPIL: Yes Equal, round and reactive pupils present Neck/C-Spine: COMMON NORMALS: full ROM, no meningeal signs and Thyroid normal THYROID: Thyroid normal Lymph: LYMPHATIC: no lymphadenopathy noted Chest: COMMONS NORMALS: normal inspection of the chest and normal palpation of entire chest wall Resp: COMMON NORMALS: normal respiratory effort, No retractions, No use of accessory muscles and clear to auscultation bilaterally EFFORT & INSPECTION: Yes able to speak in complete sentences AUSCULTATION: clear to auscultation bilaterally Cardio: COMMON NORMALS: regular rate, regular rhythm, No murmurs present (Cardio) and Peripheral pulses 2+ throughout RATE: regular rate RHYTHM: regular rhythm PERIPHERAL PULSES: Peripheral pulses 2+ throughout GI: INSPECTION: Yes normal to inspection and No GI erythema present OTHER: Abdominal examination reveals some mild voluntary guarding to palpation in the right upper quadrant as well as the epigastric region. No rebound. Typical laparoscopic surgical incisions intact. No drainage no erythema. : COMMON NORMALS: Yes no CVA tenderness BLADDER/KIDNEY EXAM: Yes no CVA tenderness Back/Pelvis: COMMON NORMALS: no CVA tenderness, thoracic and lumbar spine normal to inspection and thoraco-lumbar ROM normal Extremity: COMMON NORMALS: normal to inspection, full ROM, capillary refill normal, no calf tenderness and no pedal edema Neuro: COMMON NORMALS: patient oriented x3, moves all extremities, no focal motor deficits and no sensory deficits noted MENINGEAL SIGNS: Yes no meningeal signs CRANIAL NERVES: Yes CN normal except as noted Psych: COMMON NORMALS: mental status grossly normal Skin: COMMON NORMALS: no rashes or lesions noted, turgor normal and no jaundice GENERAL SKIN EXAM: no rashes or lesions noted and turgor normal Course Reevaluation(s): Reevaluation #1: Symptoms significantly improved appears more comfortable clinically. My review of chest x-ray reveals no evidence of significant findings. PERC neg (very low risk given short duration of surgery). Time: 13:03 Reevaluation #2: Still with some nausea and discomfort which appears to be subcostal. Time: 14:59 Reevaluation #3: Patient states she is feeling better at this point and would like to be discharged home. Vital signs were normal and no other concerning findings on reevaluation at this time. Time: 18:23 Consultations: Consultation #1: Discussed with Dr. Villarreal who agrees with proceeding with CT scan Time: 17:20 Vital Signs: Vital signs: Vital Signs Temperature 98.5 F 01/09/22 12:21 Pulse Rate 58 L 01/09/22 18:02 Respiratory Rate 14 01/09/22 16:00 Blood Pressure 96/59 01/09/22 18:02 Pulse Oximetry 96 01/09/22 18:02 Oxygen Delivery Me thod 01/09/22 15:30 MDM - Abdominal Pain Medical Decision Making Patient who is recently status post a laparoscopic cholecystectomy presented to the emergency department with epigastric and subcostal discomfort and pain. She states that the symptoms began while she was riding in a car today. She had no associated findings to suggest other worrisome condition such as tachycardia or hypoxia etc. Her evaluation in the emergency department was unrevealing for any worrisome findings. She had normal biochemical evaluation, normal imaging to include chest x-ray and a CT scan. Her symptoms improved with time and symptomatic treatment. Nothing to suggest an ongoing emergency medical condition. There was some question of whether her symptoms are related to her use of the hydrocodone and may have caused gastric or GI upset. Findings were reviewed with the her surgeon as well. Stable at this time for discharge with close follow-up. She acknowledged our discussion and was appreciative of care. Medical Records I reviewed the patient's medical records. Lab Data : 01/09/22 12:33 01/09/22 12:59 Labs/Radiology: Radiology Impressions Chest X-Ray 01/09/22 12:21 IMPRESSION: Bilateral hilar to lower lobe atelectasis versus minimal infiltrate. Abdomen/Pelvis CT 01/09/22 16:20 IMPRESSION: Expected sequela of recent cholecystectomy. Otherwise, no acute findings. Laboratory Results WBC 14.4 10^3/uL (4.0-10.0) H 01/09/22 12:33 RBC 4.85 10^6/uL (4.1-5.3) 01/09/22 12:33 Hgb 14.2 g/dL (11.5-15.3) 01/09/22 12:33 Hct 42.9 % (37.0-47.0) 01/09/22 12:33 MCV 88.5 fl (81-99) 01/09/22 12:33 MCH 29.3 pg (28.0-34.0) 01/09/22 12:33 MCHC 33.1 g/dL (30.0-36.0) 01/09/22 12:33 RDW 12.7 % (12.1-15.1) 01/09/22 12:33 Plt Count 270 10^3/cmm (130-400) 01/09/22 12:33 MPV 11.2 fL (7.4-10.4) H 01/09/22 12:33 Neut % (Auto) 74.3 % 01/09/22 12:33 Lymph % (Auto) 20.3 % 01/09/22 12:33 Collin % (Auto) 4.7 % 01/09/22 12:33 Eos % (Auto) 0.1 % 01/09/22 12:33 Baso % (Auto) 0.3 % 01/09/22 12:33 Neut # (Auto) 10.67 10^3/uL (1.8-7.7) H 01/09/22 12:33 Lymph # (Auto) 2.9 10^3/uL (0.8-4.8) 01/09/22 12:33 Collin # (Auto) 0.7 10^3/uL (0.2-0.9) 01/09/22 12:33 Eos # (Auto) 0.0 10^3/uL (0.0-0.8) 01/09/22 12:33 Baso # (Auto) 0.0 10^3/uL (0.0-0.1) 01/09/22 12:33 Nucleated RBC % (auto) 0 % 01/09/22 12:33 Nucleated RBCs # 0.0 /100WBC 01/09/22 12:33 Sodium 139 mmol/L (136-145) 01/09/22 12:59 Potassium 3.4 mmol/L (3.5-5.1) L 01/09/22 12:59 Chloride 105 mmol/L (98-107) 01/09/22 12:59 Carbon Dioxide 25 mmol/L (22-29) 01/09/22 12:59 Anion Gap 12.4 (5-19) 01/09/22 12:59 BUN 9 mg/dL (6-20) 01/09/22 12:59 Creatinine 0.7 mg/dL (0.5-0.9) 01/09/22 12:59 GFR Calculation 95.8 mL/min (90-130) 01/09/22 12:59 Glucose 98 mg/dL (65-115) 01/09/22 12:59 Calculated Osmolality 287 mOsm/kg (285-295) 01/09/22 12:59 Calcium 8.4 mg/dL (8.5-10.5) L 01/09/22 12:59 Total Bilirubin 0.3 mg/dL (0.15-1.2) 01/09/22 12:59 AST 20 U/L (0-32) 01/09/22 12:59 ALT 24 U/L (0-33) 01/09/22 12:59 Alkaline Phosphatase 54 U/L (35-105) 01/09/22 12:59 Total Protein 5.9 g/dL (6.6-8.7) L 01/09/22 12:59 Albumin 3.7 g/dL (3.5-5.2) 01/09/22 12:59 Globulin 2.2 g/dL (1.3-4.6) 01/09/22 12:59 HCG, Qual Negative (Negative) 01/09/22 17:06 EKG Data EKG 1: I personally reviewed and interpreted this EKG as follows: EKG interpretation time: 12:40 Interpretation: Resting EKG reveals ventricular rate of 51 bpm. Consistent with sinus bradycardia. ST segments are isoelectric. Intervals are otherwise normal. No other acute changes. Discharge Plan Discharge Patient Disposition: Home Clinical Impression: Postoperative abdominal pain Condition: Stable Prescriptions: No Action fluticasone propionate [Flonase Allergy Relief] 50 mcg/actuation spray,suspension 1 spray intranasal Q12H 30 Days Qty: 16 3RF Rx Instructions: administer into each nostril albuterol sulfate 90 mcg/actuation HFA aerosol inhaler 2 puff inhalation 6XD PRN (Reason: shortness of breath or wheezing) 30 Days Qty: 8.5 3RF buspirone 5 mg tablet 5 mg PO TID PRN (Reason: anxiety) Qty: 30 2RF hydroxyzine HCl 10 mg tablet 10 mg PO TID PRN (Reason: anxiety) Qty: 30 2RF montelukast [Singulair] 10 mg tablet 10 mg PO DAILY Qty: 30 2RF Tezspire 210 mg/1.91 mL (110 mg/mL) syringe 210 mg SUBCUT .once monthly Qty: 1.91 3RF escitalopram oxalate [Lexapro] 20 mg tablet 20 mg PO DAILY Qty: 90 1RF hydrocodone-acetaminophen 7.5-325 mg tablet 1 tab PO Q6H PRN (Reason: pain) Qty: 20 0RF Discharge Orders: Discharge ED (Routine); Ordered 01/09/22 Ordered By: Clyde Yun Referrals: James Santamaria, [Primary Care Provider] - Discharge Diet: Advance as tolerated Discharge Activity: Increase activity as tolerated Activity Restrictions/Additional Instructions: Discontinue the use your hydrocodone and consider using acetaminophen 1000 mg every 6-8 hours for any pain. Should he develop worsening pain, fever, difficulty breathing or any other concerns at any time return to this or the nearest emergency department Coding Level of Care Code ED Turn Down Attendant for Micah Landa
[2022-01-09 12:40] LABS: Basophils % 0.3 %; Eosinophils % 0.1 %; Hematocrit 42.9 % (37.0-47.0); Hemoglobin 14.2 g/dL (11.5-15.3); Lymphocytes # 2.9 10^3/uL (0.8-4.8); Lymphocytes % 20.3 %; Mean Corpuscular HGB Conc 33.1 g/dL (30.0-36.0); Mean Corpuscular Hemoglobin 29.3 pg (28.0-34.0); Mean Corpuscular Volume 88.5 fl (81-99); Mean Platelet Volume 11.2 fL (7.4-10.4); Monocytes # 0.7 10^3/uL (0.2-0.9); Monocytes % 4.7 %; Neutrophils # 10.67 10^3/uL (1.8-7.7); Neutrophils % 74.3 %; Nucleated Red Blood Cells % 0 %; Platelet Count 270 10^3/cmm (130-400); Red Blood Count 4.85 10^6/uL (4.1-5.3); Red Cell Distribution Width 12.7 % (12.1-15.1); White Blood Count 14.4 10^3/uL (4.0-10.0)
[2022-01-09] MEDS: sodium chloride 0.9% 1,000 ML 999 ML IV (12:41)
[2022-01-09] MEDS: ondansetron 2 mg/ML SDV 2 mL 4 MG IVP ×2 (12:42→15:05)
[2022-01-09] MEDS: fentaNYL 50 mcg/mL INJ 2mL IVP (12:46)
[2022-01-09 13:37] LABS: Alanine Aminotransferase 24 U/L (0-33); Albumin Level 3.7 g/dL (3.5-5.2); Alkaline Phosphatase 54 U/L (35-105); Anion Gap 12.4 (5-19); Aspartate Amino Transferase 20 U/L (0-32); Blood Urea Nitrogen 9 mg/dL (6-20); Calcium 8.4 mg/dL (8.5-10.5); Carbon Dioxide 25 mmol/L (22-29); Chloride 105 mmol/L (98-107); Globulin 2.2 g/dL (1.3-4.6); Glomerular Filtration Rate 95.8 mL/min (90-130); Glucose 98 mg/dL (65-115); Osmolality Calculated 287 mOsm/kg (285-295); Potassium 3.4 mmol/L (3.5-5.1); Sodium 139 mmol/L (136-145); Total Bilirubin 0.3 mg/dL (0.15-1.2); Total Protein 5.9 g/dL (6.6-8.7)
[2022-01-09] MEDS: ketorolac 30 mg/mL INJ 15 MG IVP (16:18)
--- NOTE | 2022-01-09 16:20 | CTR_ITS ---
PROCEDURE INFORMATION: Exam: CT Abdomen And Pelvis Without Contrast Exam date and time: 01/09/2022 5:19 PM Age: 36 years old Clinical indication: Abdominal pain; Acute; Prior surgery; Surgery date: Post-operative (0-2 days); Surgery type: S/P lap kacy 24 hr; Additional info: Upper abd pain, S/P lap kacy 24 hours TECHNIQUE: Imaging protocol: Computed tomography of the abdomen and pelvis without contrast. Radiation optimization: All CT scans at this facility use at least one of these dose optimization techniques: automated exposure control; mA and/or kV adjustment per patient size (includes targeted exams where dose is matched to clinical indication); or iterative reconstruction. COMPARISON: CT abdomen pelvis wo con [id number] 11/13/2021 7:55 PM RADIATION DOSE METRICS: Total DLP (mGy-cm): 573.7 FINDINGS: Lungs: Minor bibasilar atelectasis. Liver: Normal. No mass. Gallbladder and bile ducts: Cholecystectomy. No ductal dilation. Pancreas: Normal. No ductal dilation. Spleen: Normal. No splenomegaly. Adrenal glands: Normal. No mass. Kidneys and ureters: Normal. No hydronephrosis. Stomach and bowel: Unremarkable. No obstruction. No mucosal thickening. Appendix: No evidence of appendicitis. Intraperitoneal space: Trace free air in the upper abdomen consistent with recent surgical procedure. No significant fluid collection. Vasculature: Unremarkable. No abdominal aortic aneurysm. Lymph nodes: Unremarkable. No enlarged lymph nodes. Urinary bladder: Unremarkable as visualized. Reproductive: Unremarkable as visualized. Bones/joints: No acute fracture. Soft tissues: Trace foci of air and soft tissue stranding at the surgical port sites along the anterior abdomen. CT/CT abdomen pelvis con [id number] IMPRESSION: Expected sequela of recent cholecystectomy. Otherwise, no acute findings.
[2022-01-09 17:12] LABS: HCG Qualitative Urine. Negative (Negative)
--- NOTE | 2022-01-09 18:14 | PC.NURSE ---
spoke with physician regarding plan of care. Pt updated.
== END 2022-01-09 18:48 | disposition home or self-care (01) ==
PROVIDERS: Emergency Provider Emergency Medicine; PCP Family Medicine
DX: G89.18 Other acute postprocedural pain (principal); R10.9 Unspecified abdominal pain
CPT/HCPCS: 36415; 71045; 74176; 80053; 81025; 85025; 93005; 96374; 96375; 99285; J1885; J2405; J3010; J7030

== ENCOUNTER → 2022-01-22 06:50 | Day surgery (SDC) | payer BC, SELFPAY ==
[2022-01-22 07:02] VITALS: BP 116/75; PULSE 100; RESP 18; TEMP 36.8; O2SAT 95
== END ==
PROVIDERS: PCP Family Medicine; Visit Provider Internal Medicine Critical Care Medicine
DX: J45.50 Severe persistent asthma, uncomplicated (principal)
CPT/HCPCS: 96372

== ENCOUNTER → 2022-03-15 14:19 | Outpatient (BNVA) | payer BC, SELFPAY | PROVIDERS: PCP Family Medicine; Visit Provider Nurse Practitioner | DX: J02.9 Acute pharyngitis, unspecified (principal); J02.0 Streptococcal pharyngitis | CPT/HCPCS: 87880 ==

== ENCOUNTER → 2022-04-08 06:57 | Day surgery (SDC) | payer BC, SELFPAY ==
[2022-04-08] MEDS: TEZSPIRE 1 EACH XX (07:03)
[2022-04-08 07:11] VITALS: BP 107/68; PULSE 85; RESP 18; TEMP 36.1; O2SAT 96
== END ==
PROVIDERS: PCP Family Medicine; Visit Provider Internal Medicine Critical Care Medicine
DX: J45.50 Severe persistent asthma, uncomplicated (principal)
CPT/HCPCS: 96372

== ENCOUNTER → 2022-05-08 07:04 | Day surgery (SDC) | payer BC, SELFPAY ==
[2022-05-08] MEDS: NON-FORMULARY MEDICATION 1 EACH SUBCUT (07:15)
[2022-05-08 07:18] VITALS: BP 121/77; PULSE 72; RESP 18; TEMP 36.4; O2SAT 96
== END ==
PROVIDERS: PCP Family Medicine; Visit Provider Internal Medicine Critical Care Medicine
DX: J45.50 Severe persistent asthma, uncomplicated (principal)
CPT/HCPCS: 96372

== ENCOUNTER → 2022-06-08 07:54 | Day surgery (SDC) | payer BC, SELFPAY ==
[2022-06-08 08:12] VITALS: BP 111/69; PULSE 71; RESP 18; TEMP 36.1; O2SAT 98
== END ==
PROVIDERS: PCP Family Medicine; Visit Provider Internal Medicine Pulmonary Disease
DX: J45.50 Severe persistent asthma, uncomplicated (principal)
CPT/HCPCS: 96372

== ENCOUNTER → 2022-07-10 10:37 | Day surgery (SDC) | payer BC, SELFPAY ==
[2022-07-10 10:50] VITALS: BP 123/73; PULSE 76; RESP 18; TEMP 36.2; O2SAT 98
== END ==
PROVIDERS: PCP Family Medicine; Visit Provider Internal Medicine Critical Care Medicine
DX: J45.50 Severe persistent asthma, uncomplicated (principal)
CPT/HCPCS: 96372; J0131

== ENCOUNTER → 2022-07-12 11:29 | Outpatient (BNVA) | payer BC, SELFPAY | PROVIDERS: PCP Family Medicine; Visit Provider Nurse Practitioner Family | DX: J02.9 Acute pharyngitis, unspecified (principal); B34.9 Viral infection, unspecified | CPT/HCPCS: 87071; 87880 ==

== ENCOUNTER → 2022-08-07 08:53 | Day surgery (SDC) | payer BC, SELFPAY ==
[2022-08-07 09:00] VITALS: BP 94/68; PULSE 100; RESP 18; TEMP 36.2; O2SAT 98
[2022-08-07] MEDS: NON-FORMULARY MEDICATION 1 EACH XX (09:01)
== END ==
PROVIDERS: PCP Family Medicine; Visit Provider Internal Medicine Pulmonary Disease
DX: J45.50 Severe persistent asthma, uncomplicated (principal)
CPT/HCPCS: 96372

== ENCOUNTER 2022-08-18 06:26 | Outpatient (CLI) | payer BC, SELFPAY ==
--- NOTE | 2022-08-18 06:32 | XRR_ITS ---
PROCEDURE INFORMATION: Exam: XR Chest Exam date and time: 08/18/2022 6:33 AM Age: 37 years old Clinical indication: Shortness of breath; Additional info: Increased SOB, wheese, cough, fatigue TECHNIQUE: Imaging protocol: Radiologic exam of the chest. Views: 2 views. COMPARISON: CR XR chest 1V portable [id number] 01/09/2022 12:36 PM FINDINGS: Lungs: Unremarkable. No consolidation. Pleural spaces: Unremarkable. No pleural effusion. No pneumothorax. Heart/Mediastinum: Unremarkable. No cardiomegaly. Bones/joints: Unremarkable. XR/XR chest 2V* [id number] IMPRESSION: No acute findings.
== END 2022-08-18 06:27 | disposition home or self-care (01) ==
LOC: RAD 06:27
PROVIDERS: PCP Family Medicine; Visit Provider Internal Medicine Pulmonary Disease
DX: R06.02 Shortness of breath (principal); R05.8 Other specified cough; R53.83 Other fatigue
CPT/HCPCS: 71046

== ENCOUNTER → 2022-08-31 09:32 | Day surgery (SDC) | payer BC, SELFPAY ==
[2022-08-31 09:35] VITALS: BP 107/72; PULSE 73; RESP 18; TEMP 35.9; O2SAT 96
[2022-08-31] MEDS: NON-FORMULARY MEDICATION 1 EACH XX (09:36)
== END ==
PROVIDERS: PCP Family Medicine; Visit Provider Internal Medicine Pulmonary Disease
DX: J45.50 Severe persistent asthma, uncomplicated (principal)
CPT/HCPCS: 96372

== ENCOUNTER → 2022-09-28 06:52 | Day surgery (SDC) | payer BC, SELFPAY ==
[2022-09-28 07:00] VITALS: BP 111/82; PULSE 82; RESP 18; TEMP 36.3; O2SAT 98
[2022-09-28] MEDS: TEZSPIRE 1 EACH XX (07:01)
== END ==
PROVIDERS: PCP Family Medicine; Visit Provider Internal Medicine Pulmonary Disease
DX: J45.50 Severe persistent asthma, uncomplicated (principal); Z79.899 Other long term (current) drug therapy
CPT/HCPCS: 96372

== ENCOUNTER → 2022-11-05 07:50 | Day surgery (SDC) | payer BC, SELFPAY ==
[2022-11-05 07:55] VITALS: BP 127/64; PULSE 85; RESP 18; TEMP 36.5; O2SAT 95
[2022-11-05] MEDS: NON-FORMULARY MEDICATION 1 EACH XX (07:59)
== END ==
PROVIDERS: PCP Family Medicine; Visit Provider Internal Medicine Pulmonary Disease
DX: J45.50 Severe persistent asthma, uncomplicated (principal); Z79.899 Other long term (current) drug therapy
CPT/HCPCS: 96372

== ENCOUNTER → 2022-12-31 13:14 | Outpatient (BNVA) | payer BC, SELFPAY | PROVIDERS: PCP Family Medicine; Visit Provider Orthopaedic Surgery | DX: M54.16 Radiculopathy, lumbar region (principal); M48.062 Spinal stenosis, lumbar region with neurogenic claudication | CPT/HCPCS: 72110; 73523 ==

== ENCOUNTER 2023-03-03 13:41 | Outpatient (CLI) | payer BC, SELFPAY ==
--- NOTE | 2023-03-03 14:30 | MR_ITS ---
WS: [id number] MRI LUMBAR SPINE NONCONTRAST TECHNIQUE: Sagittal T1, T2 and STIR imaging. Axial T1 and T2 imaging. CLINICAL INFORMATION: lower back/ bilateral hip pain COMPARISON: None. FINDINGS: Minimal lumbar curve. No acute compression. No high-grade central canal stenosis. No visualized pars defects. Small disc protrusions in the cervical spine worse at C4-C5 and C5-C6 with mild central srikanth l stenosis. Slight small disc herniation at C6-7. This can be further evaluated with MRI cervical spi ne. L1-L2: Normal. L2-L3: Normal. L3-L4: Minimal annular bulging. Mild facet arthropathy. Spinal canal and foramen are patent. L4-L5: Mild annular bulging with slight effacement of the ventral thecal sac. Mild facet arthropathy. RIGHT eccentric disc bulge with mild RIGHT foraminal narrowing. LEFT foramen is patent. L5-S1: Mild annular bulging with slight effacement of the ventral thecal sac. Spinal canal and forame n are patent. Mild facet arthropathy. Visualized pelvic bony structures: Normal. Paravertebral soft tissues: Normal. IMPRESSION: 1. Minimal lumbar curve. No acute compression. No high-grade central canal stenosis. 2. Mild annular bulging L4-5 with slight effacement of the ventral thecal sac. Eccentric disc bulgin g with mild RIGHT L4-5 foraminal narrowing. 3. Mild facet arthropathy L3-L5. 4. Small disc protrusions in the cervical spine worse at C4-C5 and C5-C6 with mild central canal ligia nosis. Small disc herniation at C6-7. This can be further evaluated with MRI cervical spine.
== END 2023-03-03 13:42 | disposition home or self-care (01) ==
PROVIDERS: PCP Family Medicine; Visit Provider Orthopaedic Surgery
DX: M51.16 Intervertebral disc disorders with radiculopathy, lumbar region (principal); M47.26 Other spondylosis with radiculopathy, lumbar region; M50.221 Other cervical disc displacement at C4-C5 level; M48.061 Spinal stenosis, lumbar region without neurogenic claudication
CPT/HCPCS: 72148

== ENCOUNTER 2023-03-31 14:20 | Outpatient (CLI) | payer BC, SELFPAY ==
--- NOTE | 2023-03-31 15:15 | MR_ITS ---
WS: [id number] MRI CERVICAL SPINE NONCONTRAST TECHNIQUE: Sagittal T1, T2 and STIR imaging. Axial T2, gradient, and fiesta imaging. CLINICAL INFORMATION: cervical pain COMPARISON: None. FINDINGS: Straightening normal cervical lordosis. Cord signal is normal. Disc bulging worse at C5-C6 and C6-C7. Annular fissure at C6-7. C2-C3: Normal. C3-C4: Mild facet arthropathy. Spinal canal and foramen are patent. C4-C5: No significant disc bulging. Mild facet arthropathy. Mild LEFT and no significant RIGHT forami nal narrowing. Spinal canal is patent. C5-C6: Shallow central disc protrusion with mild central canal stenosis. Slight contact of the cervic al cord. Mild central canal stenosis. Moderate facet arthropathy. Mild LEFT and no significant RIGHT foraminal narrowing. C6-C7: LEFT paracentral disc protrusion. Indentation of the LEFT ventral cervical cord. Mild central canal stenosis. Mild LEFT foraminal narrowing. RIGHT foramen is patent. C7-T1: No significant disc bulging. Spinal canal and foramen are patent. Visualized brain stem structures: Normal. Prevertebral soft tissues: Normal. IMPRESSION: 1. Straightening normal cervical lordosis. Cord signal is normal. 2. Central disc protrusion C5-C6 and LEFT paracentral protrusion at C6-C7 with mild central canal st enosis and slight indentation cervical cord. 3. Disc protrusion at C6-7 extends slightly into the LEFT proximal neural foramen with mild LEFT for aminal narrowing and a small annular fissure. 4. Mild LEFT C5-C6 bony foraminal narrowing with mild facet arthropathy.
== END 2023-03-31 14:21 | disposition home or self-care (01) ==
PROVIDERS: PCP Family Medicine; Visit Provider Orthopaedic Surgery
DX: M50.222 Other cervical disc displacement at C5-C6 level (principal); M48.02 Spinal stenosis, cervical region; M47.812 Spondylosis without myelopathy or radiculopathy, cervical region
CPT/HCPCS: 72141

== ENCOUNTER → 2023-04-13 15:24 | Outpatient (BNVA) | payer BC, SELFPAY | PROVIDERS: PCP Family Medicine; Visit Provider Physician Assistant | DX: M50.122 Cervical disc disorder at C5-C6 level with radiculopathy (principal); M50.123 Cervical disc disorder at C6-C7 level with radiculopathy; M47.22 Other spondylosis with radiculopathy, cervical region | CPT/HCPCS: 72050 ==

== ENCOUNTER → 2023-06-01 13:11 | Outpatient (BNVA) | payer BC, SELFPAY | PROVIDERS: PCP Family Medicine; Visit Provider Orthopaedic Surgery | DX: M47.22 Other spondylosis with radiculopathy, cervical region (principal); M50.223 Other cervical disc displacement at C6-C7 level; M50.222 Other cervical disc displacement at C5-C6 level | CPT/HCPCS: 72040 ==

== ENCOUNTER → 2023-08-30 13:37 | Outpatient (BNVA) | payer BC, SELFPAY | PROVIDERS: PCP Family Medicine; Visit Provider Nurse Practitioner Family | DX: S99.911A Unspecified injury of right ankle, initial encounter (principal); W19.XXXA Unspecified fall, initial encounter | CPT/HCPCS: 73610 ==

== ENCOUNTER → 2023-09-20 07:41 | Outpatient (BNVA) | payer BC, SELFPAY | PROVIDERS: PCP Family Medicine; Visit Provider Podiatrist Foot & Ankle Surgery | DX: M25.571 Pain in right ankle and joints of right foot; S99.911D Unspecified injury of right ankle, subsequent encounter; S93.401D Sprain of unspecified ligament of right ankle, subsequent encounter; S93.491D Sprain of other ligament of right ankle, subsequent encounter; X58.XXXD Exposure to other specified factors, subsequent encounter | CPT/HCPCS: 73610 ==

== ENCOUNTER → 2024-03-21 09:30 | Outpatient (BNVA) | payer BC, SELFPAY | PROVIDERS: PCP Family Medicine; Visit Provider Family Medicine | DX: R22.0 Localized swelling, mass and lump, head (principal) | CPT/HCPCS: 80053 ==

== ENCOUNTER → 2024-11-07 15:45 | Outpatient (BNVA) | payer BC, SELFPAY | PROVIDERS: PCP Family Medicine; Visit Provider Family Medicine | DX: J45.50 Severe persistent asthma, uncomplicated (principal); R79.89 Other specified abnormal findings of blood chemistry | CPT/HCPCS: 80048; 85027 ==

== ENCOUNTER 2024-11-29 10:09 | Outpatient (CLI) | payer BC, SELFPAY ==
--- NOTE | 2024-11-29 10:18 | CTR_ITS ---
PROCEDURE INFORMATION: Exam: CT Abdomen And Pelvis Without And With Contrast Exam date and time: 11/29/2024 10:36 AM Age: 39 years old Clinical indication: Prior surgery; Surgery date: 6+ months; Surgery type: Hyst, gb, c-sections; Right flank pain x 2 months, getting worse in last few days; Additional info: Flank pain, stat TECHNIQUE: Imaging protocol: Computed tomography of the abdomen and pelvis without and with contrast. Radiation optimization: All CT scans at this facility use at least one of these dose optimization techniques: automated exposure control; mA and/or kV adjustment per patient size (includes targeted exams where dose is matched to clinical indication); or iterative reconstruction. Contrast material: OMNI 350; Contrast volume: 100 ml; Contrast route: INTRAVENOUS (IV); COMPARISON: CT abdomen pelvis wo con [id number] 01/09/2022 5:19 PM RADIATION DOSE METRICS: Total DLP (mGy-cm): 741.05 FINDINGS: Liver: Normal. No mass. Gallbladder and biliary ducts: Cholecystectomy. Pancreas: Normal. No ductal dilation. Spleen: Normal. No splenomegaly. Adrenal glands: Normal. No mass. Kidneys and ureters: Normal. No hydronephrosis. Stomach and bowel: Unremarkable. No obstruction. No mucosal thickening. Appendix: No evidence of appendicitis. Intraperitoneal space: Unremarkable. No free air. No significant fluid collection. Vasculature: Unremarkable. No abdominal aortic aneurysm. Lymph nodes: Unremarkable. No enlarged lymph nodes. Urinary bladder: Unremarkable as visualized. Reproductive: Hysterectomy. Bones/joints: Unremarkable. No acute fracture. Soft tissues: Unremarkable. CT/CT abdomen pelvis wo/w [id number] IMPRESSION: No acute findings.
[2024-11-29] MEDS: iohexol 350 mg/mL 500 mL Btl (per mL) IV (10:41)
== END 2024-11-29 10:10 | disposition home or self-care (01) ==
PROVIDERS: PCP Family Medicine
DX: R10.9 Unspecified abdominal pain (principal)
CPT/HCPCS: 74178

== ENCOUNTER 2025-02-07 07:13 | Outpatient (CLI) | payer BC, SELFPAY | END 2025-02-07 07:14 | disposition home or self-care (01) | LOC: RT 07:13 | PROVIDERS: PCP Family Medicine; Visit Provider Family Medicine | DX: J45.50 Severe persistent asthma, uncomplicated (principal); J45.909 Unspecified asthma, uncomplicated; R79.89 Other specified abnormal findings of blood chemistry; Z29.89 Encounter for other specified prophylactic measures | CPT/HCPCS: 94060; 94726; 94729; J7613 ==

== ENCOUNTER → 2025-02-22 08:50 | Outpatient (BNVA) | payer BC, SELFPAY | PROVIDERS: PCP Family Medicine; Visit Provider Orthopaedic Surgery | DX: M48.04 Spinal stenosis, thoracic region (principal); M48.062 Spinal stenosis, lumbar region with neurogenic claudication | CPT/HCPCS: 72110 ==

== ENCOUNTER → 2025-02-26 11:46 | Outpatient (BNVA) | payer BC, SELFPAY | PROVIDERS: PCP Family Medicine; Visit Provider Internal Medicine | DX: J44.9 Chronic obstructive pulmonary disease, unspecified (principal) | CPT/HCPCS: 71046 ==

== ENCOUNTER 2025-03-13 08:00 | Outpatient (CLI) | payer BC, SELFPAY ==
--- NOTE | 2025-03-13 08:00 | MR_ITS ---
WS: [email or web address] MRI THORACIC SPINE noncontrast HISTORY: back pain COMPARISON: None available. TECHNIQUE: Multiplanar sequences are performed in sagittal and axial planes. Mild RIGHT curvature thoracic spine. Posterior alignment is normal otherwise. Disc spaces and vertebral body heights are well-maintained. Normal signal in the cord. No syrinx is identified. T1-2: LEFT foraminal nerve root sleeve diverticulum. T2-3: Normal. T3-4: Normal. T4-5: Normal. T5-6: Normal. T6-7: Normal. T7-8: Normal. T8-9: Mild facet joint arthritis. No stenosis. T9-10: Moderate facet joint arthritis. Facet joint arthropathy is encroaching upon the posterior thecal sac with effacement of CSF greatest on the RIGHT. T10-11: Mild facet joint arthritis. T11-12: Mild facet joint arthritis. Paravertebral soft tissues are normal. MR/MR thoracic spin wo con* [id number] IMPRESSION: 1. No high-grade central or foraminal stenosis. 2. Facet joint arthritis most significant at T9-10 encroaching upon the receptionist ior lateral thecal sac greatest on the RIGHT. There is very mild contact on the posterior cord at this level. 3. No fractures or marrow edema. 4. Mild RIGHT curvature thoracic spine.
--- NOTE | 2025-03-13 08:45 | MR_ITS ---
WS: [email or web address] MRI LUMBAR SPINE NONCONTRAST HISTORY: back pain COMPARISON: 03/03/2023 TECHNIQUE: Sagittal and axial multisequence imaging is submitted. Normal lumbar alignment with no compression fractures or marrow edema. Disc spaces and vertebral body heights are well-preserved. Conus terminates normally at L1. L1-L2: Normal. L2-L3: Normal. L3-L4: Minimal disc bulge and facet arthritis. No stenosis. Similar to the prior study. Small nerve root sleeve diverticula identified. L4-L5: Mild annular disc bulging with moderate ligamentum flavum and facet arthritis. Effacement of ventral CSF. There is disc narrowing the subarticular recesses and contacting the traversing L5 nerve roots. Mild bilateral foraminal stenosis, slightly greater on the RIGHT. L5-S1: Mild annular disc bulging with a small central disc protrusion. Mild encroachment upon the S1 nerve roots. No high-grade central stenosis. Mild LEFT foraminal stenosis. Paravertebral soft tissues are negative. There is a small amount of free fluid in the pelvis which is probably from a ruptured ovarian cyst. Slightly complex LEFT ovarian cyst with adjacent fluid. MR/MR lumbar spine wo con* [id number] IMPRESSION: 1. No high-grade central or foraminal stenosis. 2. Very mild progression of facet joint arthropathy at L4-5 since 03/03/2023. 3. Mild disc contact on the traversing L5 nerve roots. Mild bilateral foramina l stenosis at L4-5 and on the LEFT at L5-S1. 4. Very small central disc protrusion at L5-S1 is new. Minimal contact on the S1 nerve roots.
[2025-03-13 09:24] LABS: Hematocrit 39.6 % (36-47); Hemoglobin 13.40 g/dL (11.27-16.99); Mean Corpuscular HGB Conc 33.8 g/dL (30-55); Mean Corpuscular Hemoglobin 29.3 pg (27-33); Mean Corpuscular Volume 86.7 fl (85-98); Nucleated Red Blood Cells % 0 %; Platelet Count 227 10^3/cmm (157-399); Red Blood Count 4.57 10^6/uL (3.85-5.65); White Blood Count 5.83 10^3/uL (3.29-11.43)
== END 2025-03-13 08:01 | disposition home or self-care (01) ==
PROVIDERS: Internal Medicine; PCP Family Medicine; Visit Provider Orthopaedic Surgery
DX: M48.04 Spinal stenosis, thoracic region (principal); M48.062 Spinal stenosis, lumbar region with neurogenic claudication; J44.9 Chronic obstructive pulmonary disease, unspecified; M51.16 Intervertebral disc disorders with radiculopathy, lumbar region; M48.061 Spinal stenosis, lumbar region without neurogenic claudication; M47.26 Other spondylosis with radiculopathy, lumbar region; M51.17 Intervertebral disc disorders with radiculopathy, lumbosacral region; M48.07 Spinal stenosis, lumbosacral region; M47.894 Other spondylosis, thoracic region; M47.814 Spondylosis without myelopathy or radiculopathy, thoracic region; M99.52 Intervertebral disc stenosis of neural canal of thoracic region; M41.34 Thoracogenic scoliosis, thoracic region
CPT/HCPCS: 36415; 72146; 72148; 85025